=== PATIENT | female | born 1960 ===

== ENCOUNTER 2020-10-17 07:38 | Outpatient (CLI) | payer BC | END 2020-10-17 07:39 | disposition home or self-care (01) | LOC: BICMAMMO 07:38 | PROVIDERS: ATTEND Family Medicine | DX: Z12.31 Encounter for screening mammogram for malignant neoplasm of breast (principal); Z13.820 Encounter for screening for osteoporosis | CPT/HCPCS: 71046; 77063; 77067; 77080 ==